=== PATIENT | female | born 1945 | race Caucasian/White ===

== ENCOUNTER 2021-08-29 19:25 | Emergency (ER) | payer BC, MEDICARE ==
[2021-08-29] MEDS ORDERED: Lidocaine 1% with EPINEPHrine 1:100,000 10 ML MDV ONE (19:46)
[2021-08-29] MEDS ORDERED: Lidocaine 1% with EPINEPHrine 1:100,000 10 ML MDV INJECT ONE (20:00)
[2021-08-29] MEDS ORDERED: Bacitracin/Neomycin/Polymyxin B Oint 28.4 GM Tube ONE (20:23)
[2021-08-29] MEDS ORDERED: Bacitracin/Neomycin/Polymyxin B Oint 0.9 GM U/D Packet TOP ONE (20:25)
== END 2021-08-29 20:35 | disposition home or self-care (01) ==
LOC: KA.ED 19:25
DX: S51.812A Laceration without foreign body of left forearm, initial encounter (principal); Z79.82 Long term (current) use of aspirin; W31.2XXA Contact with powered woodworking and forming machines, initial encounter
CPT/HCPCS: 12002; 99282; 99283